=== PATIENT | male | born 1990 | race African-American/Black ===

== ENCOUNTER 2016-06-25 10:38 | Emergency (ER) | payer OTHER, BC ==
[2016-06-25] MEDS ORDERED: IBUPROFEN 800 MG TABLET PO ONE (11:24)
[2016-06-25] MEDS ORDERED: IPRATROPIUM/ALBUTEROL 0.5-2.5 MG/3 ML AMPUL NEB ONE (11:25)
[2016-06-25] MEDS ORDERED: PREDNISONE 20 MG TABLET PO ONE (11:25)
--- NOTE | 2016-06-25 11:26 | ER Document Report ---
HPI - HPI Patient complains to provider of: cough Onset: Other Onset/Duration: Persistent - 4 days Quality of pain: Achy Pain Level: 5 Context: Patient complains of cough for the past 4 days that is occasionally productive with wheezing and fever 2 days ago. Patient states occasionally he will gag after coughing. Patient reports elevated blood pressure recently as well. Associated Symptoms: Productive cough, Fever Exacerbated by: Denies Relieved by: Denies Similar symptoms previously: Yes Recently seen / treated by doctor: No - ROS ROS below otherwise negative: Yes Systems Reviewed and Negative: Yes All other systems reviewed and negative - CONSTITUTIONAL Constitutional: REPORTS: Fever - NEURO Neurology: DENIES: Headache, Weakness - 2 days ago - CARDIOVASCULAR Cardiovascular: REPORTS: Chest pain - RESPIRATORY Respiratory: REPORTS: Coughing. DENIES: Trouble Breathing - GASTROINTESTINAL Gastrointestinal: REPORTS: Patient vomiting - After coughing. DENIES: Nausea - REPRODUCTIVE Reproductive: DENIES: : - MUSCULOSKELETAL Musculoskeletal: DENIES: Extremity pain, Back Pain, Neck Pain - DERM Skin Color: Normal Skin Problems: None Past Medical History - General Information source: Patient - Social History Smoking Status: Never Smoker Frequency of alcohol use: None Drug Abuse: None Occupation: [employer] Lives with: Family Family History: Reviewed & Not Pertinent Patient has suicidal ideation: No Patient has homicidal ideation: No - Medical History Medical History: Negative Pulmonary Medical History: Reports: Hx Asthma - pediatric, Hx Pneumonia Renal/ Medical History: Denies: Hx Peritoneal Dialysis Surgical Hx: Negative - Immunizations Hx Diphtheria, Pertussis, Tetanus Vaccination: Yes Vertical Provider Document - CONSTITUTIONAL Agree With Documented VS: Yes Exam Limitations: No Limitations General Appearance: WD/WN, No Apparent Distress - INFECTION CONTROL TRAVEL OUTSIDE OF THE [place] IN LAST 30 DAYS: No - HEENT HEENT: Atraumatic, Normal ENT Exam, Normocephalic. negative: Pharyngeal Exudate , Pharyngeal Tenderness, Pharyngeal Erythema, Tympanic Membrane Red, Tympanic Membrane Bulging - NECK Neck: Normal Inspection, Supple. negative: Lymphadenopathy-Left, Lymphadenopathy-Right - RESPIRATORY Respiratory: No Respiratory Distress, Rhonchi, Wheezing. negative: Chest Non- Tender - CARDIOVASCULAR Cardiovascular: Regular Rhythm, No Murmur, Tachycardia - BACK Back: Normal Inspection - MUSCULOSKELETAL/EXTREMETIES Musculoskeletal/Extremeties: ELOISE ANSARI - NEURO Level of Consciousness: Awake, Alert, Appropriate Motor/Sensory: No Motor Deficit - DERM Integumentary: Warm, Dry, No Rash Course - Diagnostic Test Radiology reviewed: Image reviewed, Reports reviewed Discharge - Discharge Clinical Impression: Cough, Elevated blood pressure reading Chest pain Qualifiers: Chest pain type: unspecified Qualified Code(s): R07.9 - Chest pain, unspecified Condition: Stable Disposition: HOME, SELF-CARE Additional Instructions: Return immediately for any new or worsening symptoms Followup with your primary care provider, call tomorrow to make a followup appointment Your blood pressure was mildly elevated today. Recheck with primary doctor in 2 days to have this reevaluated. Prescriptions: Albuterol Sulfate [Ventolin Hfa] 2 puff IH Q4HP PRN #17 gm PRN Reason: Benzonatate [Tessalon Perle 100 mg Capsule] 100 mg PO Q8HP PRN #20 cap PRN Reason: Azithromycin [Zithromax 250 mg Tablet] 250 mg PO DAILY 4 Days Forms: Elevated Blood Pressure, Return to Work Referrals: [facility] [Provider Group] - Follow up as needed [facility] [Provider Group] - Follow up tomorrow
[2016-06-25] MEDS ORDERED: LIDOCAINE 1% INJ-PF (10 MG/ML) 30 ML SDV INJ ONE (12:01)
[2016-06-25] MEDS ORDERED: CEFTRIAXONE INJ 1000 MG VIAL IM ONE (12:01)
[2016-06-25] MEDS ORDERED: AZITHROMYCIN 250 MG TABLET PO ONE (12:02)
--- NOTE | 2016-06-25 13:33 | EKG REPORT ---
SEVERITY:- ABNORMAL ECG - SINUS TACHYCARDIA PROBABLE LEFT ATRIAL ABNORMALITY PROBABLE LEFT VENTRICULAR HYPERTROPHY LATERAL Q WAVES, PROBABLY NORMAL VARIATION : Confirmed by: Steven Mccarthy MD 25-Jun-2016 13:33:20
[2016-06-25 15:10] VITALS: BP 149/82
== END 2016-06-25 13:03 | disposition home or self-care (01) ==
LOC: ER 10:38
DX: R05 Cough (principal); R50.9 Fever, unspecified; R00.0 Tachycardia, unspecified; R03.0 Elevated blood-pressure reading, without diagnosis of hypertension; R06.2 Wheezing; R07.9 Chest pain, unspecified; Z87.09 Personal history of other diseases of the respiratory system
CPT/HCPCS: 93005; 94640; 99283; 96372; 71020; 93010; J3490; J7512; J0696; J7620

== ENCOUNTER 2017-03-04 08:28 | Emergency (ER) | payer BC, OTHER ==
--- NOTE | 2017-03-04 09:14 | RADIOLOGY REPORT (SQ) ---
EXAM DESCRIPTION: CHEST PA/LAT COMPLETED DATE/TIME: 03/04/2017 9:05 am REASON FOR STUDY: productive cough 1 week COMPARISON: Two-view chest 06/25/2016, 03/06/2014 EXAM PARAMETERS: NUMBER OF VIEWS: two views TECHNIQUE: Digital Frontal and Lateral radiographic views of the chest acquired. RADIATION DOSE: NA LIMITATIONS: none FINDINGS: LUNGS AND PLEURA: There is bibasilar airspace disease, pneumonia versus atelectasis. No pleural effusions. No pneumothorax. MEDIASTINUM AND HILAR STRUCTURES: No masses or contour abnormalities. HEART AND VASCULAR STRUCTURES: Heart normal size. No evidence for failure. BONES: No acute findings. HARDWARE: None in the chest. OTHER: No other significant finding. IMPRESSION: Bibasilar airspace disease left greater than right, worrisome for pneumonia No pleural effusions TECHNICAL DOCUMENTATION: JOB ID: [id number] [employer]- All Rights Reserved
--- NOTE | 2017-03-04 09:29 | ER Document Report ---
ED General - General Chief Complaint: Productive Cough Stated Complaint: FEVER, CONGESTION Time Seen by Provider: 03/04/17 08:55 Mode of Arrival: Ambulatory Information source: Patient Notes: 26-year-old former smoker presents with complaints of one-week duration of productive cough. Patient denies any current fevers but notes on New Year's he had fevers. Patient notes his productive yellowish sputum TRAVEL OUTSIDE OF THE [place]. IN LAST 30 DAYS: No - HPI Onset: Last week Onset/Duration: Persistent Quality of pain: Achy Severity: Mild Pain Level: 1 Associated symptoms: Productive cough, Fever, Shortness of breath Exacerbated by: Denies Relieved by: Denies Similar symptoms previously: No Recently seen / treated by doctor: No - Related Data Allergies/Adverse Reactions: No Known Allergies Allergy (Verified 03/04/17 08:31) Past Medical History - Social History Smoking Status: Former Smoker Cigarette use (# per day): No Chew tobacco use (# tins/day): No Smoking Education Provided: No Family History: Reviewed & Not Pertinent Pulmonary Medical History: Reports: Hx Asthma - pediatric, Hx Pneumonia Renal/ Medical History: Denies: Hx Peritoneal Dialysis - Immunizations Hx Diphtheria, Pertussis, Tetanus Vaccination: Yes Review of Systems - Review of Systems Notes: REVIEW OF SYSTEMS: CONSTITUTIONAL : Denies fever, chills, or sweats. Denies recent illness. EENT: Denies eye, ear, throat, or mouth pain or symptoms. Denies nasal or sinus congestion or discharge. Denies throat, tongue, or mouth swelling or difficulty swallowing. CARDIOVASCULAR: Denies chest pain. Denies palpitations or racing or irregular heart beat. Denies ankle edema. RESPIRATORY: Admits to productive cough GASTROINTESTINAL: Denies abdominal pain or distention. Denies nausea, vomiting , or diarrhea. Denies blood in vomitus, stools, or per rectum. Denies black, tarry stools. Denies constipation. GENITOURINARY: Denies difficulty urinating, painful urination, burning, frequency, blood in urine, or discharge. MUSCULOSKELETAL: Denies back or neck pain or stiffness. Denies joint pain or swelling. SKIN: Denies rash, lesions or sores. HEMATOLOGIC : Denies easy bruising or bleeding. LYMPHATIC: Denies swollen, enlarged glands. NEUROLOGICAL: Denies confusion or altered mental status. Denies passing out or loss of consciousness. Denies dizziness or lightheadedness. Denies headache. Denies weakness or paralysis or loss of use of either side. Denies problems with gait or speech. Denies sensory loss, numbness, or tingling. Denies seizures. PSYCHIATRIC: Denies anxiety or stress. Denies depression, suicidal ideation, or homicidal ideation. ALL OTHER SYSTEMS REVIEWED AND NEGATIVE. Dictation was performed using [employer] voice recognition software PHYSICAL EXAMINATION: GENERAL: Well-appearing, well-nourished and in no acute distress. HEAD: Atraumatic, normocephalic. EYES: Pupils equal round and reactive to light, extraocular movements intact, sclera anicteric, conjunctiva are normal. ENT: Nares patent, oropharynx clear without exudates. Moist mucous membranes. NECK: Normal range of motion, supple without lymphadenopathy LUNGS: Mild crackles noted all throughout HEART: Regular rate and rhythm without murmurs ABDOMEN: Soft, nontender, nondistended abdomen. No guarding, no rebound. No masses appreciated. Musculoskeletal: Normal range of motion, no pitting or edema. No cyanosis. NEUROLOGICAL: Cranial nerves grossly intact. Normal speech, normal gait. Normal sensory, motor exams PSYCH: Normal mood, normal affect. SKIN: Warm, Dry, normal turgor, no rashes or lesions noted. Physical Exam - Vital signs Vitals: Temp Pulse Resp BP Pulse Ox 98.7 F 84 18 144/87 H 97 03/04/17 08:33 03/04/17 08:33 03/04/17 08:33 03/04/17 08:33 03/04/17 08:33 Course - Re-evaluation Re-evalutation: 03/04/17 10:19 Patient looks well is in no respiratory distress, he is breathing well on room air, chest x-rays consistent with pneumonia, patient will be started on antibiotics After performing a Medical Screening Examination, I estimate there is LOW risk for ACUTE CORONARY SYNDROME, PULMONARY EMBOLI, RESPIRATORY FAILURE, SEPSIS OR MENINGITIS, thus I consider the discharge disposition reasonable. I have reevaluated this patient multiple times and no significant life threatening changes are noted. The patient and I have discussed the diagnosis and risks, and we agree with discharging home with close follow-up. We also discussed returning to the Emergency Department immediately if new or worsening symptoms occur. We have discussed the symptoms which are most concerning (e.g., changing or worsening pain, trouble swallowing or breathing, neck stiffness, fever) that necessitate immediate return. - Vital Signs Vital signs: Temp Pulse Resp BP Pulse Ox 98.0 F 88 18 140/73 H 93 03/04/17 09:42 03/04/17 09:42 03/04/17 09:42 03/04/17 09:42 03/04/17 09:42 - Diagnostic Test Radiology reviewed: Image reviewed, Reports reviewed - Pneumonia report given to patient Discharge - Discharge Clinical Impression: Pneumonia Qualifiers: Pneumonia type: due to unspecified organism Laterality: bilateral Lung location : unspecified part of lung Qualified Code(s): J18.9 - Pneumonia, unspecified organism Condition: Stable Disposition: HOME, SELF-CARE Instructions: Pneumonia ([facility]) Additional Instructions: Follow up with your physician tomorrow for further care or return to the ED IMMEDIATELY if symptoms worsen or new concerns occur. If you cannot afford to follow up with your primary care physician a list of low cost clinics have been provided at the end of your discharge papers as well. Prescriptions: Azithromycin 250 mg PO DAILY #4 tablet
[2017-03-04] MEDS ORDERED: AZITHROMYCIN 250 MG TABLET PO ONE (09:30)
[2017-03-04 09:46] VITALS: BP 140/73
== END 2017-03-04 09:42 | disposition home or self-care (01) ==
LOC: ER 08:28
DX: J18.9 Pneumonia, unspecified organism (principal); R05 Cough; R06.02 Shortness of breath; Z87.891 Personal history of nicotine dependence
CPT/HCPCS: 71046; 99283

== ENCOUNTER 2017-03-24 06:56 | Emergency (ER) | payer BC ==
--- NOTE | 2017-03-24 07:50 | ER Document Report ---
HPI - HPI Pain Level: Denies Notes: Patient is a 26-year-old male with no significant past medical history is aside from asthma as a child who presents to the ED requesting a medical form to be filled out for his work. 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 Patient states that on his paper asthma is something that can be an "overlooked" disability. Patient has not had any flareups since he was a child. Patient has not been seen by any primary care provider in years. Patient states that he is otherwise been healthy aside from coming to the ED with illness and injury. He does not take any medicines daily. Denies any headache, fever, head injury, neck pain, changes in vision/speech/mentation/hearing, URI, sore throat, chest pain, palpitations, syncope, cough, shortness of breath, wheeze, dyspnea, abdominal pain, nausea/vomiting/diarrhea, urinary retention, dysuria, hematuria , loss of control of bowel or bladder, numbness/tingling, saddle anesthesia, muscle paralysis/weakness, or rash. - ROS Systems Reviewed and Negative: Yes All other systems reviewed and negative - REPRODUCTIVE Reproductive: DENIES: : Past Medical History - Social History Smoking Status: Never Smoker Family History: Reviewed & Not Pertinent Pulmonary Medical History: Reports: Hx Asthma - pediatric, Hx Pneumonia Renal/ Medical History: Denies: Hx Peritoneal Dialysis - Immunizations Hx Diphtheria, Pertussis, Tetanus Vaccination: Yes Vertical Provider Document - CONSTITUTIONAL Agree With Documented VS: Yes Notes: PHYSICAL EXAMINATION: GENERAL: Well-appearing, well-nourished and in no acute distress. A&O x4. Answers questions appropriately. HEAD: Atraumatic, normocephalic. EYES: Pupils equal round and reactive to light, extraocular movements intact, sclera anicteric, conjunctiva are normal. NECK: Normal range of motion, supple without lymphadenopathy LUNGS: Breath sounds clear to auscultation bilaterally and equal. No wheezes rales or rhonchi. HEART: Regular rate and rhythm without murmurs, rubs, gallops. PSYCH: Normal mood, normal affect. SKIN: Warm, Dry, normal turgor, no rashes or lesions noted. - INFECTION CONTROL TRAVEL OUTSIDE OF THE [place] IN LAST 30 DAYS: No - RESPIRATORY O2 Sat by Pulse Oximetry: 100 Course - Re-evaluation Re-evalutation: 03/24/17 07:49 Patient is an afebrile, well-hydrated, 26-year-old male who presents the ED with a medical release paperwork. Vitals are stable. PE is otherwise unremarkable. Advised patient that if he has not had a flareup of his asthma since he was a child he most likely does not have asthma anymore. It appears that patient is trying to label some type of disability so he has a less risk of being laid off from his job. Advised patient that if he wants the medical records that we have he can contact medical records during business hours to obtain, but he needs to establish with the PCM for preventive medicine and routine screenings. The form he provided does not even have a line for me to sign it is more of requesting records that should have a signature on them. Conservative measures otherwise. Recheck/establish with PCM within a week. Return to the ED with any worsening/concerning symptoms otherwise as reviewed discharge. Patient is in agreement. - Vital Signs Vital signs: Temp Pulse Resp BP Pulse Ox 98.5 F 98 16 150/94 H 100 03/24/17 07:19 03/24/17 07:19 03/24/17 07:19 03/24/17 07:19 03/24/17 07:19 Discharge - Discharge Clinical Impression: Worried well Condition: Stable Disposition: HOME, SELF-CARE Instructions: Family Physicians / Practices Additional Instructions: Establish with a primary care provider for preventative medicine and routine screenings Healthy diet, exercise, weight loss Return to the ED with any worsening symptoms and/or development of fever, headache, chest pain, palpitations, syncope, shortness of breath, trouble breathing, abdominal pain, n/v/d, blood in stool/urine, loss of control of bowel /bladder, urinary retention, muscle weakness/paralysis, saddle anesthesia, numbness/tingling, or other worsening symptoms that are concerning to you. Forms: Elevated Blood Pressure [facility] - Follow up as needed [facility] [Provider Group] - Follow up as needed
[2017-03-24 08:16] VITALS: BP 150/72
== END 2017-03-24 08:15 | disposition home or self-care (01) ==
LOC: ER 06:56
DX: Z71.1 Person with feared health complaint in whom no diagnosis is made (principal)
CPT/HCPCS: 99283

== ENCOUNTER 2018-07-24 20:58 | Emergency (ER) | payer OTHER ==
--- NOTE | 2018-07-24 22:14 | RADIOLOGY REPORT (SQ) ---
EXAM DESCRIPTION: Left foot RadLex: XR FOOT 3 OR MORE VIEWS Views: 3 CLINICAL HISTORY: 28 years Male, heel pain COMPARISON: None. FINDINGS: Negative for acute fracture, dislocation, or radiopaque foreign body. IMPRESSION: 1. No acute findings.
--- NOTE | 2018-07-24 23:11 | ER Document Report ---
ED General - General Chief Complaint: Foot Pain Stated Complaint: BODY PAIN Time Seen by Provider: 07/24/18 23:02 Mode of Arrival: Ambulatory Information source: Patient TRAVEL OUTSIDE OF THE [place] IN LAST 30 DAYS: No - HPI Patient complains to provider of: Left heel pain Onset: Other - 6 months Onset/Duration: Constant Quality of pain: Sharp Severity: Severe Pain Level: 5 Associated symptoms: None Exacerbated by: Denies Relieved by: Denies Similar symptoms previously: No Recently seen / treated by doctor: No Notes: 28-year-old -[place]og[place] male with atraumatic left heel pain for 6 months. - Related Data Allergies/Adverse Reactions: No Known Allergies Allergy (Verified 03/24/17 07:00) Past Medical History - General Information source: Patient - Social History Smoking Status: Never Smoker Family History: Reviewed & Not Pertinent Pulmonary Medical History: Reports: Hx Asthma - pediatric, Hx Pneumonia Renal/ Medical History: Denies: Hx Peritoneal Dialysis - Immunizations Hx Diphtheria, Pertussis, Tetanus Vaccination: Yes Review of Systems - Review of Systems Notes: Constitutional: No fevers. No chills. EENT: No eye redness. No eye pain. No ear pain. No sore throat. Cardiovascular: No chest pain. No palpitations. Respiratory: No cough. No shortness of breath. No respiratory distress. Gastrointestinal: No abdominal pain. No nausea, vomiting, or diarrhea. Genitourinary: Atraumatic. No lesions. No pain. No discharge. Musculoskeletal: Left heel pain Skin: No rash or lesions. Lymphatic: No swollen lymph nodes. Neurologic: No headache. No syncope. Psychiatric: No suicidal or homicidal ideation. Physical Exam - Vital signs Vitals: Temp Pulse Resp BP Pulse Ox 98.1 F 77 20 121/86 H 100 07/24/18 22:00 07/24/18 22:00 07/24/18 22:00 07/24/18 22:00 07/24/18 22:00 - Notes Notes: General: Well-developed, well-nourished. In no acute distress. Non-toxic appearing. Cardiac: Well-perfused. Regular rate and rhythm. No murmurs, rubs, or gallops. Pulmonary: No respiratory distress. No cyanosis. Bilateral lung fiels are clear to auscultation. Abdominal: Non-distended. Non-rigid. Bowels sounds are present in all four quadrants. No guarding or rebound. HEENT: Head is atraumatic. Conjunctivae not reddened. No tearing. PERRL. EOMI. Orbits atraumatic. No periorbital swelling or erythema. Oropharynx is without erythema, swelling, or exudates. Neck: Supple. No adenopathy. No meningismus. Dermatologic: Warm with good turgor. No rash. Atraumatic. Chest: Atraumatic. No chest wall tenderness to palpation. Musculoskeletal: Point tender left calcaneus Genitourinary: Examination deferred Neurologic: No gross neurologic deficits. Psychiatric: Normal mood. Course - Vital Signs Vital signs: Temp Pulse Resp BP Pulse Ox 98.1 F 77 20 121/86 H 100 07/24/18 22:00 07/24/18 22:00 07/24/18 22:00 07/24/18 22:00 07/24/18 22:00 Discharge - Discharge Clinical Impression: Plantar fasciitis Condition: Good Disposition: HOME, SELF-CARE Instructions: Plantar Fasciitis or Heel Spur ([facility]) Prescriptions: Naproxen 500 mg PO BID 7 Days #14 tablet Referrals: [facility] [Provider Group] - Follow up as needed
[2018-07-24 23:32] VITALS: BP 118/80
== END 2018-07-24 23:38 | disposition home or self-care (01) ==
LOC: ER 20:58
DX: M72.2 Plantar fascial fibromatosis (principal)
CPT/HCPCS: 99283

== ENCOUNTER 2018-12-14 08:53 | Emergency (ER) | payer SELFPAY ==
[2018-12-14 08:59] VITALS: BP 142/79
--- NOTE | 2018-12-14 09:49 | ER Document Report ---
HPI - HPI Patient complains to provider of: top of qtip in left ear Time Seen by Provider: 12/14/18 09:18 Onset/Duration: Sudden Pain Level: Denies Context: 28-year-old male presents emergency department with complaints of a Q-tip top stuck in his left ear. Reports he had just stepped out of the shower and cleaning his ears with a qtip when this happened. Denies fever vomiting diarrhea reports some irritation, pain to the left ear. Denies fever vomiting diarrhea. Associated Symptoms: None Exacerbated by: Denies Relieved by: Denies Similar symptoms previously: No Recently seen / treated by doctor: No - REPRODUCTIVE Reproductive: DENIES: : Past Medical History - General Information source: Patient - Social History Smoking Status: Current Every Day Smoker Cigarette use (# per day): Yes Chew tobacco use (# tins/day): No Frequency of alcohol use: None Drug Abuse: None Lives with: Family Family History: Reviewed & Not Pertinent Patient has suicidal ideation: No Patient has homicidal ideation: No Pulmonary Medical History: Reports: Hx Asthma - pediatric, Hx Pneumonia Renal/ Medical History: Denies: Hx Peritoneal Dialysis Surgical Hx: Negative - Immunizations Hx Diphtheria, Pertussis, Tetanus Vaccination: Yes Vertical Provider Document - CONSTITUTIONAL Agree With Documented VS: Yes Exam Limitations: No Limitations General Appearance: WD/WN, No Apparent Distress - INFECTION CONTROL TRAVEL OUTSIDE OF THE [place] IN LAST 30 DAYS: No - HEENT HEENT: Atraumatic, Normocephalic. negative: Conjuctival Injection, Pharyngeal Erythema, Tympanic Membrane Red - Some erythema to the EAC, what appears to be a top of a cottonball noted in patient's left ear. - NECK Neck: Supple - RESPIRATORY Respiratory: No Respiratory Distress - CARDIOVASCULAR Cardiovascular: Regular Rate - MUSCULOSKELETAL/EXTREMETIES Musculoskeletal/Extremeties: ELOISE ANSARI - NEURO Level of Consciousness: Awake, Alert, Appropriate - DERM Integumentary: Warm, Dry Course - Re-evaluation Re-evalutation: 12/14/18 11:14 This 28-year-old with a Q-tip in his left ear presents due to pain and irritation. I did attempt to obtain the cottonball without success. I utilized a curette and alligator clips. Then I attempted to irrigate with warm water without success. I contacted Dr. georges who said patient can follow-up in his office tomorrow [place] at 9:00 in the morning. Patient was instructed on this. He was instructed to not put anything in his ear. He verbalized understanding to all instructions. Dictation of this chart was performed using voice recognition software; therefore, there may be some unintended grammatical errors. - Vital Signs Vital signs: Temp Pulse Resp BP Pulse Ox 97.9 F 85 18 142/79 H 99 12/14/18 08:58 12/14/18 08:58 12/14/18 08:58 12/14/18 08:58 12/14/18 08:58 - Consults alexandra Reason for consultation: 12/14/18 10:01 qtip stuck in here Consulted provider: follow-up in office Discharge - Discharge Clinical Impression: Foreign body in left ear Qualifiers: Encounter type: initial encounter Qualified Code(s): T16.2XXA - Foreign body in left ear, initial encounter Condition: Stable Disposition: HOME, SELF-CARE Additional Instructions: *You have been evaluated for ear pain, foreign body in left ear *Take motrin as indicated for pain *Follow up with Dr Mix tomorrow morning at 0900 *Return to ED for worsening condition, changes, needs Referrals: MELIA MIX MD [ACTIVE STAFF] - 12/15/18 9:00 am
== END 2018-12-14 10:07 | disposition home or self-care (01) ==
LOC: ER 08:53
DX: T16.2XXA Foreign body in left ear, initial encounter (principal); X58.XXXA Exposure to other specified factors, initial encounter; F17.210 Nicotine dependence, cigarettes, uncomplicated
CPT/HCPCS: 99282

== ENCOUNTER 2019-01-12 08:48 | Emergency (ER) | payer SELFPAY ==
[2019-01-12 08:57] VITALS: BP 123/83
[2019-01-12] MEDS ORDERED: IPRATROPIUM/ALBUTEROL 0.5-2.5 MG/3 ML AMPUL NEB ONE (09:05)
--- NOTE | 2019-01-12 09:07 | ER Document Report ---
ED Medical Screen (RME) - General Chief Complaint: Cough Stated Complaint: COUGH,CONGESTION,LEFT LUNG AREA PAIN Time Seen by Provider: 01/12/19 09:02 Notes: Patient is a 28-year-old male who presents the emergency department with a chief complaint of a cough. Patient states that he first started with a tickle in his throat about a week ago and then he progressed to having a fever. Denies any fever at this time. He states that this morning he "could feel something in my left lung." Patient denies any chest pain. Patient denies smoking history, but states that he is around people who smoke at work and at home. Exam: Expiratory wheezes noted to right upper lung field and coarse breath sounds noted to the left lower lung field. I have greeted and performed a rapid initial assessment of this patient. A comprehensive ED assessment and evaluation of the patient, analysis of test results and completion of medical decision making process will be conducted by an additional ED providers. TRAVEL OUTSIDE OF THE [place] IN LAST 30 DAYS: No - Related Data Allergies/Adverse Reactions: No Known Allergies Allergy (Verified 01/12/19 08:58) Past Medical History - Social History Chew tobacco use (# tins/day): No Frequency of alcohol use: None Drug Abuse: None Pulmonary Medical History: Reports: Hx Asthma - pediatric, Hx Pneumonia Renal/ Medical History: Denies: Hx Peritoneal Dialysis - Immunizations Hx Diphtheria, Pertussis, Tetanus Vaccination: Yes Physical Exam - Vital signs Vitals: Temp Pulse Resp BP Pulse Ox 98.3 F 66 20 123/83 98 01/12/19 08:57 01/12/19 08:57 01/12/19 08:57 01/12/19 08:57 01/12/19 08:57 Course - Vital Signs Vital signs: Temp Pulse Resp BP Pulse Ox 98.3 F 66 20 123/83 98 01/12/19 08:57 01/12/19 08:57 01/12/19 08:57 01/12/19 08:57 01/12/19 08:57
--- NOTE | 2019-01-12 09:42 | RADIOLOGY REPORT (SQ) ---
EXAM DESCRIPTION: CHEST 2 VIEWS COMPLETED DATE/TIME: 01/12/2019 9:27 am REASON FOR STUDY: cough/fever COMPARISON: 03/04/2017. EXAM PARAMETERS: NUMBER OF VIEWS: two views TECHNIQUE: Digital Frontal and Lateral radiographic views of the chest acquired. RADIATION DOSE: NA LIMITATIONS: none FINDINGS: LUNGS AND PLEURA: No opacities, masses or pneumothorax. No pleural effusion. MEDIASTINUM AND HILAR STRUCTURES: No masses or contour abnormalities. HEART AND VASCULAR STRUCTURES: Heart normal size. No evidence for failure. BONES: No acute findings. HARDWARE: None in the chest. OTHER: No other significant finding. IMPRESSION: 1. NO ACUTE RADIOGRAPHIC FINDING IN THE CHEST. TECHNICAL DOCUMENTATION: JOB ID: [id number] [employer]- All Rights Reserved Reading location - IP/workstation name: [email or web address]
[2019-01-12] MEDS ORDERED: ALBUTEROL SULFATE HFA (90 MCG/PUFF) 8 GM MDI (1 MDI/ER DISP) IH PRN (10:04)
--- NOTE | 2019-01-12 10:08 | ER Document Report ---
HPI - HPI Time Seen by Provider: 01/12/19 09:02 Pain Level: 3 Context: Patient is a 28-year-old male who presents the emergency department with a chief complaint of a cough. Patient states that he first started with a tickle in his throat about a week ago and then he progressed to having a fever. Denies any fever at this time. He states that this morning he "could feel something in my left lung." Patient denies any chest pain. Patient denies smoking history, but states that he is around people who smoke at work and at home. - CONSTITUTIONAL Constitutional: REPORTS: Fever, Chills - EENT EENT: REPORTS: Sore Throat, Nasal Drainage-Clear, Nasal Drainage-Purulent, Congestion. DENIES: Ear Pain, Eye problems - NEURO Neurology: DENIES: Headache, Weakness, Vision blurred, Dizzinesss / Vertigo - CARDIOVASCULAR Cardiovascular: DENIES: Chest pain - RESPIRATORY Respiratory: REPORTS: Trouble Breathing, Coughing - GASTROINTESTINAL Gastrointestinal: DENIES: Abdominal Pain, Nausea, Patient vomiting, Diarrhea - REPRODUCTIVE Reproductive: DENIES: : - MUSCULOSKELETAL Musculoskeletal: DENIES: Extremity pain - DERM Skin Color: Normal Skin Problems: None Past Medical History - Social History Smoking Status: Unknown if Ever Smoked Chew tobacco use (# tins/day): No Frequency of alcohol use: None Drug Abuse: None Family History: Reviewed & Not Pertinent Patient has suicidal ideation: No Patient has homicidal ideation: No Pulmonary Medical History: Reports: Hx Asthma - pediatric, Hx Pneumonia Renal/ Medical History: Denies: Hx Peritoneal Dialysis - Immunizations Hx Diphtheria, Pertussis, Tetanus Vaccination: Yes Vertical Provider Document - CONSTITUTIONAL Agree With Documented VS: Yes Exam Limitations: No Limitations General Appearance: No Apparent Distress - INFECTION CONTROL TRAVEL OUTSIDE OF THE [place] IN LAST 30 DAYS: No - HEENT HEENT: Atraumatic, Normocephalic, PERRLA - NECK Neck: Normal Inspection - RESPIRATORY Respiratory: Wheezing - Bilateral lungs - CARDIOVASCULAR Cardiovascular: Regular Rate, Regular Rhythm Pulses: Normal: Radial - MUSCULOSKELETAL/EXTREMETIES Musculoskeletal/Extremeties: FROM - NEURO Level of Consciousness: Awake, Alert, Appropriate - DERM Integumentary: Warm, Dry, No Rash Course - Re-evaluation Re-evalutation: 01/12/19 10:15 Patient's chest x-ray is negative for any acute findings. Patient's vital signs are stable. Very low suspicion for pneumonia, or any life-threatening etiology at this time. Patient will be sent home with an albuterol inhaler. I instructed him to make sure that he takes 4-6 1 to 2 puffs every 4-6 hours as needed. He will also be started on guaifenesin and cetirizine. He will follow- up with [facility] and or [facility]. He is in agreement with this plan. Follow-up precautions were given. Verbal discharge instructions were given to the patient. They verbalized understanding. They are stable for discharge. - Vital Signs Vital signs: Temp Pulse Resp BP Pulse Ox 98.3 F 66 20 123/83 98 01/12/19 08:57 01/12/19 08:57 01/12/19 08:57 01/12/19 08:57 01/12/19 08:57 Discharge - Discharge Clinical Impression: Cough Condition: Stable Disposition: HOME, SELF-CARE Additional Instructions: You are seen today in the emergency department for a cough. Chest chest x-ray was normal. Please follow-up with 1 of the clinics below in regards to your cough. Please continue ibuprofen 600 mg and acetaminophen 1000 mg every 6 hours for any fever. Please continue guaifenesin. Make sure you get plenty of rest and drink plenty of fluids. Return if your symptoms are worse. You are being sent home with an albuterol inhaler. Take 1 puff every 4-6 hours as needed for shortness of breath. Prescriptions: Cetirizine HCl [Aller-Pablito] 1 tab PO DAILY #30 tablet Guaifenesin [Mucinex] 1,200 mg PO BID #14 tab.er.[id number] Forms: Return to Work, Smoking Cessation Education Referrals: [facility] [Provider Group] - Follow up as needed [facility] [Provider Group] - Follow up as needed
[2019-01-12] MEDS ORDERED: CETIRIZINE 10 MG TABLET PO ONE (10:15)
[2019-01-12] MEDS ORDERED: GUAIFENESIN 600 MG TABLET.SA PO ONE (10:15)
== END 2019-01-12 10:22 | disposition home or self-care (01) ==
LOC: ER 08:48
DX: J02.9 Acute pharyngitis, unspecified (principal); R05 Cough; R50.9 Fever, unspecified
CPT/HCPCS: 71046; J3490; J7620; 94640; 99283